=== PATIENT | male | born 1960 | race Two or more races ===

== ENCOUNTER → 2020-10-17 | Outpatient (CLI) | payer OTHER ==
--- NOTE | 2020-10-17 09:38 | RAD ---
EXAM: 3 views right shoulder DATE: 10/17/2020 9:17 AM INDICATION: Reason: RT SHOULDER PAIN, DISABILITY DETERMINATION / Spl. Instructions: / History: COMPARISON: No Prior FINDINGS: Screw plate fixation of the right chemical without definite hardware complication. No acute fracture or dislocation. AC joint is congruent. Mild lateral downsloping of the distal acromion. AC joint dege nerative changes are seen. IMPRESSION: 1. No acute fracture or dislocation. 2. AC joint degenerative changes. Electronically signed by: Eddie Sun MD (10/17/2020 9:35 AM) [id number]
--- NOTE | 2020-10-17 09:39 | RAD ---
EXAM: AP and lateral of the Left knee DATE: 10/17/2020 9:17 AM INDICATION: Reason: RIGHT SHOULDER AND LEFT KNEE PAIN. DISABILITY DETERMINATION / Spl. Instructions: / History: COMPARISON: No Prior FINDINGS: No acute fracture or dislocation. No Left joint effusion. Mild medial joint space and with tricompar tmental osteophytes. Chondrocalcinosis. 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 IMPRESSION: 1. No acute fracture or dislocation. 2. Left knee joint osteoarthritis. 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 3. No knee joint effusion. Electronically signed by: Eddie Sun MD (10/17/2020 9:37 AM) [id number] Laterality
== END ==
LOC: RAD 08:58
PROVIDERS: ATTEND Anesthesiology Pain Medicine
DX: M19.011 Primary osteoarthritis, right shoulder (principal); M17.12 Unilateral primary osteoarthritis, left knee
CPT/HCPCS: 73030; 73560